=== PATIENT | male | born 1990 | race Caucasian/White ===

== ENCOUNTER 2016-11-29 10:52 | Emergency (ER) | payer OTHER ==
[~2016-11-29] VITALS: Ht 185.4 cm; Wt 93.0 kg
--- NOTE | 2016-11-29 11:29 | ED GI/GU/ABDOMINAL COMPLAINT ---
History of Present Illness General Chief Complaint: Nausea, Vomiting, Diarrhea Stated Complaint: NVD Source: patient Exam Limitations: no limitations Vital Signs & Intake/Output Vital Signs & Intake/Output Vital Signs Date Time Temp Pulse Resp B/P Pulse O2 O2 Flow FiO2 Ox Delivery Rate 11/29 1529 78 18 103/54 96 Room Air 11/29 1326 100.8 11/29 1305 101.3 92 17 103/55 99 Room Air 11/29 1304 101.3 11/29 1054 97.4 90 18 116/74 98 Room Air Allergies Coded Allergies: No Known Allergies (11/29/16) Reconcile Medications Dicyclomine Hydrochloride (Bentyl) 10 MG CAPSULE 1 CAP PO TID PRN GASTROENTERITIS Ondansetron HCl (Zofran) 4 MG TABLET 1 TAB PO Q6-8P PRN NAUSEA Triage Note: COMPLAINS OF N/V/D SINCE 0700 , DENIES ABD PAIN Triage Nurses Notes Reviewed? yes Onset: Abrupt Duration: constant Timing: recent history Quality/Severity: mild Severity Numbers: 2 Location: generalized abdomen Radiation: no radiation Activities at Onset: eating Prior Abdominal Problems: none HPI: Patient is a 26-year-old male with a unremarkable past medical history who presented emergency room seen at last night patient ate old left out chicken wings and then throughout the night and this morning he has had multiple blood cells of nonbloody nonbilious emesis and loose watery diarrhea stool production with no blood noted. Denies any recent antibiotic use. Patient has been intolerant of by mouth intake since symptoms began. Does have generalized low- grade cramping abdominal pain due to patient's symptoms. Denies any fever chills back pain dysuria hematuria chest pain Past History Travel History Traveled to [place] past 21 day No Medical History Any Pertinent Medical History? none Neurological: NONE EENT: NONE Cardiovascular: NONE Respiratory: NONE Gastrointestinal: NONE Hepatic: NONE Renal: NONE Musculoskeletal: NONE Psychiatric: NONE Endocrine: NONE Blood Disorders: NONE Cancer(s): NONE [employer] DESIGNER/Reproductive: NONE Surgical History Surgical History: non-contributory Psychosocial History What is your primary language Albanian Tobacco Use: Never used ETOH Use: denies use Illicit Drug Use: denies illicit drug use Family History Hx Contributory? No Review of Systems Review of Systems Constitutional: Reports: no symptoms. EENTM: Reports: no symptoms. Respiratory: Reports: no symptoms. Cardiovascular: Reports: no symptoms. GI: Reports: see HPI, nausea, vomiting. Genitourinary: Reports: no symptoms. Musculoskeletal: Reports: no symptoms. Skin: Reports: no symptoms. Neurological/Psychological: Reports: no symptoms. Hematologic/Endocrine: Reports: no symptoms. Immunologic/Allergic: Reports: no symptoms. All Other Systems: Reviewed and Negative Physical Exam Physical Exam General Appearance: mild distress Gastrointestinal: normal bowel sounds, soft, MILD RIGHT LOWER QUADRANT POINT TENDERNESS Comments: HEENT: Normal EENT exam, Neck: Supple, no lymphadenopathy, normal range of motion without pain or tenderness Back: Nontender, no CVA tenderness. Cardiovascular: Regular rate and rhythms no murmurs rubs or gallops, normal JVP Respiratory: Chest nontender. No respiratory distress.breath sounds clear to auscultation bilaterally Extremity: No edema, no calf tenderness to palpation, normal and equal pulses. Neuro: Alert oriented x3, motor sensory normal, Skin: No appreciable rash on exposed skin, skin is warm and dry. Psych: Mood and affect is normal, memory and judgment is normal. Core Measures ACS in differential dx? No Severe Sepsis Present: No Septic Shock Present: No Progress Differential Diagnosis: AAA, AMI, appendicitis, biliary colic, bowel obstruction , colon cancer, cholecystitis, diverticulitis, epididymitis, esophageal varices, gastritis, hepatitis, hernia, hemorrhoids, ischemic bowel, inflamm bowel dis, Loyda-Desmond tear, orchitis, pancreatitis, prostatitis, peptic ulcer, PUD/GERD, perforated viscous, pyelonephritis, SBO, testicular torsion, ureterolithiasis, urinary retention, urethritis, UTI/pyelo Plan of Care: Orders Procedure Date/time Status LIPASE 11/29 1132 Complete COMPREHENSIVE METABOLIC PANEL 11/29 1132 Complete CBC WITHOUT DIFFERENTIAL 11/29 1132 Complete AMYLASE 11/29 1132 Complete Laboratory Tests 11/29/16 1212: Anion Gap 15, Estimated GFR > 60, BUN/Creatinine Ratio 17.8, Glucose 91, Calcium 10.0, Total Bilirubin 0.8, AST 28, ALT 53, Alkaline Phosphatase 93, Total Protein 7.7, Albumin 4.5, Globulin 3.2, Albumin/Globulin Ratio 1.4, Amylase 52, Lipase 59 11/29/16 1138: CBC w Diff MAN DIFF ORDERED, RBC 5.77, MCV 89.2, MCH 30.2, RDW 13.1, MPV 8.7, Gran % 92.6 H, Lymphocytes % 3.4 L, Monocytes % 3.3, Eosinophils % 0.7, Basophils % 0 L, Absolute Granulocytes 19.2 H, Segmented Neutrophils 90 H, Band Neutrophils 6 H, Absolute Lymphocytes 0.7 L, Lymphocytes 1 L, Monocytes 3, Absolute Monocytes 0.7 H, Absolute Eosinophils 0.1, Absolute Basophils 0, Platelet Estimate VERIFIED BY SMEAR, Normocytic RBCs VERIFIED, Normochromic RBCs VERIFIED, PUBS MCHC 33.8 Afebrile Suspicion is gastroenteritis due to patient's history of present illness however patient will receive CT scan for rule out appendicitis 11/29/2016 3:03:19 PM patient still resting comfortably CT scan currently is pending Patient had unremarkable CT scan patient was by mouth challenged and was able tolerate prior to discharge. Upon discharge patient looks well no apparent distress and will comply with discharge instructions and had no questions. Patient due to history of present illness exam findings and labs and CT scan was likely has gastroenteritis however he was strongly advised to follow GI symptoms continue when he will comply (MARC ORDONEZ,RACHELLE) Diagnostic Imaging: Viewed by Me: CT Scan. Radiology Impression: no acute abnormality Initial ED EKG: none Comments: PATIENT: VERENA OSUNA PRESENT AGE: 26 PATIENT ACCOUNT NO: [id number] : 90 LOCATION: [facility] ORDERING PHYSICIAN: RACHELLE ORDONEZ SERVICE DATE: 11/29/16 EXAM TYPE: CAT - CT ABD & PELVIS W IV CONTRAST EXAMINATION: CT ABDOMEN AND PELVIS WITH CONTRAST CLINICAL INFORMATION: Right lower quadrant pain COMPARISON: CT scan of abdomen and pelvis 06/03/2016 TECHNIQUE: Multidetector volumetric imaging was performed of the abdomen and pelvis before and after the IV administration of 95 mL of Optiray 320 intravenous contrast. Sagittal and coronal reformatted images were obtained on the technologist's workstation. DLP: 426.32 mGy-cm FINDINGS: LUNG BASES: The visualized lung bases are unremarkable. LIVER, GALLBLADDER, AND BILIARY TREE: 5 mm hypodensity dome right lobe of liver, axial image 9 (2). Statistically likely small hepatic cyst. This is unchanged since prior CAT scan. No intrahepatic bile duct dilatation. The gallbladder is unremarkable with no evidence of radiopaque gallstones, gallbladder wall thickening, or obvious pericholecystic inflammatory changes. PANCREAS: Unremarkable. SPLEEN: Unremarkable. ADRENAL GLANDS: Unremarkable. KIDNEYS AND URETERS: The kidneys are normal in size, shape, and attenuation. No hydronephrosis, hydroureter, or calculi seen. No perinephric stranding. BLADDER: Unremarkable. GASTROINTESTINAL TRACT: The small and large bowel are unremarkable. The appendix is unremarkable. ABDOMINAL WALL: No significant hernia is appreciated. LYMPH NODES: Normal. VASCULAR: Unremarkable. PELVIC VISCERA: Unremarkable. 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 Disc height narrowing L5-S1 with small endplate spurs of the vertebrae. IMPRESSION: Normal CT scan abdomen pelvis. Normal appendix. Departure Departure Disposition: HOME OR SELF CARE Condition: Stable Clinical Impression Primary Impression: Gastroenteritis Referrals: GABINO BHARDWAJ,JEANMARIE HARTMAN MD,CAITLIN (PCP/Family) Additional Instructions: As discussed begin a 24-hour clear liquid and bland diet to rest bowels. Begin the prescription Zofran for future nausea. Begin the prescription of Bentyl as directed for abdominal complaints. If symptoms worsen return to emergency room. Begin drinking plenty of water for hydration. If no better Friday follow-up with real estate [employer] Dr. LLOYD. Prescriptions are waiting at your [facility] pharmacy Departure Forms: Customer Survey General Discharge Information Prescriptions: Current Visit Scripts Dicyclomine Hydrochloride (Bentyl) 1 CAP PO TID PRN GASTROENTERITIS #9 CAP Ondansetron HCl (Zofran) 1 TAB PO Q6-8P PRN NAUSEA #10 TAB
[2016-11-29 11:50] LABS: ABSOLUTE BASOPHIL COUNT 0 /CUMM (0.0-0.2); ABSOLUTE EOSINOPHIL COUNT 0.1 /CUMM (0.0-0.7); ABSOLUTE GRANULOCYTE CT 19.2 /CUMM (1.4-6.5); ABSOLUTE LYMPH COUNT 0.7 /CUMM (1.2-3.4); ABSOLUTE MONOCYTE COUNT 0.7 /CUMM (0.10-0.60); BASOPHIL % 0 % (0.0-2.0); EOSINOPHIL % 0.7 % (0-5); GRANULOCYTE % 92.6 % (42.2-75.2); HEMATOCRIT 51.5 % (42-52); MEAN CORPUSCULAR HGB 30.2 PG (27.0-31.0); MEAN CORPUSCULAR HGB CONC 33.8 G/DL (33.0-37.0); MEAN CORPUSCULAR VOLUME 89.2 FL (80.0-94.0); MEAN PLATELET VOLUME 8.7 FL (7.4-10.4); PLATELET COUNT 241 /CUMM (130-400); RBC DISTRIBUTION WIDTH 13.1 % (11.5-14.5); RED BLOOD CELL CT 5.77 /CUMM (4.70-6.10); WHITE BLOOD CELL COUNT 20.8 /CUMM (4.8-10.8)
--- NOTE | 2016-11-29 15:18 | CT SCAN REPORT ---
EXAMINATION: CT ABDOMEN AND PELVIS WITH CONTRAST CLINICAL INFORMATION: Right lower quadrant pain COMPARISON: CT scan of abdomen and pelvis 06/03/2016 TECHNIQUE: Multidetector volumetric imaging was performed of the abdomen and pelvis before and after the IV administration of 95 mL of Optiray 320 intravenous contrast. Sagittal and coronal reformatted images were obtained on the technologist's workstation. DLP: 426.32 mGy-cm FINDINGS: LUNG BASES: The visualized lung bases are unremarkable. LIVER, GALLBLADDER, AND BILIARY TREE: 5 mm hypodensity dome right lobe of liver, axial image 9 (2). Statistically likely small hepatic cyst. This is unchanged since prior CAT scan. No intrahepatic bile duct dilatation. The gallbladder is unremarkable with no evidence of radiopaque gallstones, gallbladder wall thickening, or obvious pericholecystic inflammatory changes. PANCREAS: Unremarkable. SPLEEN: Unremarkable. ADRENAL GLANDS: Unremarkable. KIDNEYS AND URETERS: The kidneys are normal in size, shape, and attenuation. No hydronephrosis, hydroureter, or calculi seen. No perinephric stranding. BLADDER: Unremarkable. GASTROINTESTINAL TRACT: The small and large bowel are unremarkable. The appendix is unremarkable. ABDOMINAL WALL: No significant hernia is appreciated. LYMPH NODES: Normal. VASCULAR: Unremarkable. PELVIC VISCERA: Unremarkable. 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 Disc height narrowing L5-S1 with small endplate spurs of the vertebrae. IMPRESSION: Normal CT scan abdomen pelvis. Normal appendix.
[2016-11-29 15:29] VITALS: BP 103/54
[2016-11-29] MEDS ORDERED: ZOFRAN4 M2 PO (15:30)
[2016-11-29] MEDS ORDERED: BENTYL10 M1 PO (15:30)
== END 2016-11-29 15:34 ==
LOC: ERH 10:52
PROVIDERS: Physician Assistant
DX: K52.9 Noninfective gastroenteritis and colitis, unspecified (principal)
CPT/HCPCS: 74177; 96361; 96374; 96375; J2405